=== PATIENT | male | born 1945 ===

== ENCOUNTER 2021-06-30 13:36 | Emergency (ER) | payer MEDICARE, MEDICAID ==
[2021-06-30] MEDS ORDERED: Sodium Chloride 0.9% 10 ML Syringe FLUSH PRN (13:57)
--- NOTE | 2021-06-30 14:16 | CR ---
PROCEDURE INFORMATION: Exam: XR Chest Exam date and time: 06/30/2021 2:05 PM Age: 76 years old Clinical indication: Other: Bradycardia TECHNIQUE: Imaging protocol: XR of the chest. Views: 1 view. COMPARISON: No relevant prior studies available. FINDINGS: Lungs: Unremarkable. No consolidation. Pleural spaces: Unremarkable. No pleural effusion. No pneumothorax. Heart/Mediastinum: Unremarkable. No cardiomegaly. Bones/joints: Unremarkable. IMPRESSION: No acute findings.
[2021-06-30 14:26] LABS: ANION GAP 14.6 mEq/L (7-13); CHLORIDE,CL 105 mmol/L (98-107); SODIUM,NA 144 mmol/L (136-145)
--- NOTE | 2021-06-30 15:44 | EDM.PDOC ---
Scribed by Rosalinda Villagran 06/30/21 [id number] for Lynda Norton MD ED HPI GENERAL MEDICAL PROBLEM - General Chief Complaint: Cardiovascular Problem Stated Complaint: sent from dialysis Time Seen by Provider: 06/30/21 13:54 Source of Information: Reports: Patient, Old Records, RN, RN Notes Reviewed History Limitations: Reports: No Limitations - History of Present Illness INITIAL COMMENTS - FREE TEXT/NARRATIVE: 76 y/o M was at dialysis here at [facility]. While starting dialysis staff noted pts pulse to be in the 30's. Pt has no physical complaints. Staff brought pt to ER for evaluation. Normally gets dialysis once a week. 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 Pt now self caths to ensure bladder emptying. Is schedule for a Turp procedure in the near future. Denies heart disease, cp, db, abd pn, vision prob, dizziness, pelvic pn, extremity pain, weakness, fatigue, constipation. Duration: Minutes: Location: Reports: Chest Severity: Moderate Improves with: Reports: None Worsens with: Reports: None - Related Data Allergies Allergy/AdvReac Type Severity Reaction Status Date / Time Penicillins Allergy Cardiac Verified 06/30/21 14:20 Arrest Home Meds: Home Meds Amiodarone HCl 100 mg PO DAILY 06/30/21 [History] Bilberry 375 mg PO ASDIRECTED 06/30/21 [History] Calcium Acetate [PhosLo] 667 mg PO TID 06/30/21 [History] Cholecalciferol (Vitamin D3) [Vitamin D3] 1 tab PO ASDIRECTED 06/30/21 [History] Fish Oil/[place]-3 Fatty Acids [Fish Oil 1,000 MG] 1 tab PO ASDIRECTED 06/30/21 [History] Glucosamine Sulfate 1,000 mg PO ASDIRECTED 06/30/21 [History] Lutein 20 mg PO ASDIRECTED 06/30/21 [History] Midodrine 7.5 mg PO ASDIRECTED 06/30/21 [History] Multivitamin [Multi-Vitamin Daily] 1 tab PO ASDIRECTED 06/30/21 [History] Saw Zeigler 80 mg PO ASDIRECTED 06/30/21 [History] Tamsulosin [Flomax] 0.4 mg PO ACLUNCH 06/30/21 [History] Tamsulosin [Tamsulosin 24 Hr] 0.4 mg PO ASDIRECTED 06/30/21 [History] Vitamin E 1,000 unit PO 06/30/21 [History] Zinc Sulfate [Zincate] 220 mg PO DAILY 06/30/21 [History] ED ROS GENERAL - Review of Systems Review Of Systems: Comprehensive ROS is negative, except as noted in HPI. ED EXAM, GENERAL - Physical Exam Exam: See Below Exam Limited By: No Limitations General Appearance: Alert, No Apparent Distress Eye Exam: Bilateral Eye: PERRL Nose: Normal Inspection, Normal Mucosa, No Blood Throat/Mouth: Normal Inspection Head: Atraumatic, Normocephalic Neck: Normal Inspection, Supple, Non-Tender, Full Range of Motion Respiratory/Chest: No Respiratory Distress, Lungs Clear, Normal Breath Sounds, No Accessory Muscle Use Cardiovascular: Other (bradycardic rhythm by auscultation and peripheral pulse) GI/Abdominal: Soft, Non-Tender (Male) Exam: Deferred Rectal (Males) Exam: Deferred Back Exam: Normal Inspection, Full Range of Motion Extremities: Normal Inspection, Normal Range of Motion, Non-Tender, Normal Capillary Refill, No Pedal Edema Neurological: Alert, Oriented, Normal Cognition Psychiatric: Normal Affect Skin Exam: Warm, Dry, Intact #1 Interpretation EKG Date: 06/30/21 Time: 13:43 Rhythm: Other (siuns bigeminy) [place]: LAD-Left [place] Deviation P-Wave: Present QRS: Normal ST-T: Normal EKG Interpretation Comments: sinus rhythm with bigeminy rate of 85 on the EKG, PVCs are not conducting a pulse, underlying pulse rate is actually 36. Left axis, normal R wave progression, normal ST segment. Course - Vital Signs Last Recorded V/S: Last Vital Signs Temp 98 F 06/30/21 14:13 Pulse 68 06/30/21 14:13 Resp 14 06/30/21 14:13 BP 146/72 H 06/30/21 14:13 Pulse Ox 100 06/30/21 14:13 - Orders/Labs/Meds Orders: Active Orders 24 hr Category Date Time Status EKG 12 Lead [EKG Documentation Completion] [RC] STAT Care 06/30/21 13:31 Active Peripheral IV Care [RC] . DIRECTED Care 06/30/21 13:57 Active CULTURE URINE [RM] Stat Lab 06/30/21 15:09 Received UA W/MICROSCOPIC [URIN] Stat Lab 06/30/21 15:09 Results Sodium Chloride 0.9% [Saline Flush] Med 06/30/21 13:57 Active 10 ml FLUSH ASDIRECTED PRN Peripheral IV Insertion Adult [OM.PC] Stat Oth 06/30/21 13:56 Ordered Medication Orders Sodium Chloride (Sodium Chloride 0.9% 10 Ml Syringe) 10 ml FLUSH ASDIRECTED PRN PRN Reason: Keep Vein Open Labs: Laboratory Tests 06/30/21 06/30/21 06/30/21 Range/Units 13:50 13:50 15:09 WBC 7.1 (5.0-10.0) 10^3/uL RBC 4.54 L (4.6-6.2) 10^6/uL Hgb 13.7 L (14.0-18.0) g/dL Hct 41.6 (40.0-54.0) % MCV 91.6 (80-100) fL MCH 30.2 (27.0-34.0) pg MCHC 32.9 L (33.0-35.0) g/dL Plt Count 169 (150-450) 10^3/uL Neut % (Auto) 61.2 (42.2-75.2) % Lymph % (Auto) 27.7 (20.5-50.1) % [place] % (Auto) 9.8 H (2-8) % Eos % (Auto) 1.0 (1.0-3.0) % Baso % (Auto) 0.3 (0.0-1.0) % Sodium 144 (136-145) mmol/L Potassium 4.6 (3.5-5.1) mmol/L Chloride 105 (98-107) mmol/L Carbon Dioxide 29 (21-32) mmol/L Anion Gap 14.6 H (7-13) mEq/L BUN 58 H (7-18) mg/dL Creatinine 3.40 H (0.70-1.30) mg/dL Est Cr Clr Drug Dosing TNP Estimated GFR (MDRD) 18 BUN/Creatinine Ratio 17.1 (No establ ref range) Glucose 91 (70-99) mg/dL Calcium 9.3 (8.5-10.1) mg/dL Phosphorus 3.5 (2.6-4.7) mg/dL Magnesium 2.2 (1.8-2.4) mg/dL Total Bilirubin 0.5 (0.2-1.0) mg/dL AST 16 (15-37) U/L ALT 22 (16-63) U/L Alkaline Phosphatase 45 L (46-116) U/L Troponin I High Sens 12 (<=76) pg/mL B-Natriuretic Peptide 265 H (0-100) pg/ml Total Protein 7.0 (6.4-8.2) g/dL Albumin 3.7 (3.4-5.0) g/dL Globulin 3.3 Albumin/Globulin Ratio 1.1 TSH, Ultra Sensitive 1.39 (0.36-3.74) uIU/mL Urine Color Yellow (YELLOW) Urine Appearance Cloudy (CLEAR) Urine pH 6.5 (5.0-9.0) Ur Specific [place] 1.020 (1.005-1.030) Urine Protein 30 H (NEGATIVE) Urine Glucose (UA) Negative (NEGATIVE) Urine Ketones Negative (NEGATIVE) Urine Occult Blood Trace-lysed H (NEGATIVE) Urine Nitrite Positive H (NEGATIVE) Urine Bilirubin Negative (NEGATIVE) Urine Urobilinogen 0.2 (0.2-1.0) mg/dL Ur Leukocyte Esterase Large H (NEGATIVE) Meds: Medications Generic Name Dose Route Start Last Admin Trade Name Freq PRN Reason Stop Dose Admin Sodium Chloride 10 ml 06/30/21 13:57 Sodium Chloride 0.9% 10 Ml Syringe FLUSH ASDIRECTED PRN Keep Vein Open - Radiology Interpretation Free Text/Narrative:: [facility] Final Radiology Report Call: [phone] assistance Online chat: [email or web address] Name: JOYCELYN GOODMAN Age: 76Years M Date: 06/30/2021 SSN: -- : [id number] Study: CR CHEST 1V FRONTAL Requesting Physician: LYNDA NORTON Images: 1 Addl Studies: Provided Clinical History: bradycardia Contrast: Contrast Medium: Contrast Amount: Contrast Method: CONFIDENTIALITY STATEMENT This report is intended only for use by the referring physician, and only in accordance with law. If you received this in error, call [phone]. Page 1 of 1 PROCEDURE INFORMATION: Exam: XR Chest Exam date and time: 06/30/2021 2:05 PM Age: 76 years old Clinical indication: Other: Bradycardia TECHNIQUE: Imaging protocol: XR of the chest. Views: 1 view. COMPARISON: No relevant prior studies available. FINDINGS: Lungs: Unremarkable. No consolidation. Pleural spaces: Unremarkable. No pleural effusion. No pneumothorax. Heart/Mediastinum: Unremarkable. No cardiomegaly. Bones/joints: Unremarkable. IMPRESSION: No acute findings. Thank you for allowing us to participate in the care of your patient. Dictated and Authenticated by: Ernesto Alfonso MD 06/30/2021 2:16 PM Central Time ([place] & [place]) - Re-Assessments/Exams Free Text/Narrative Re-Assessment/Exam: 06/30/21 15:36 Pt's heart rate initially bradycardic at 36 with bigeminal PVCs, since shortly after arrival he has remained with heart rate between 56 and 68 with PVCs throughout the remainder of the ER stay. Pt has been completely asymptomatic. 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 Departure - Departure Time of Disposition: 15:37 Disposition: Home, Self-Care 01 Condition: Good Clinical Impression: PVCs (premature ventricular contractions), Bradycardia UTI (urinary tract infection) Qualifiers: Urinary tract infection type: site unspecified Hematuria presence: without yassine turia Qualified Code(s): N39.0 - Urinary tract infection, site not specified Instructions: Urinary Tract Infection, Adult, Bradycardia, Adult, Premature Ventricular Contraction Forms: ED Department Discharge Additional Instructions: Rx: Cipro 250mg Follow up next week with your tan room supervisor or live games dealer for bradycardia with PVCs. Return to the ER or call 911 if you feel lightheaded, faint, have chest pain, or any other emergent concerns. Sepsis Event Note (ED) - Focused Exam Vital Signs: Vital Signs Temp Pulse Resp BP Pulse Ox 06/30/21 14:13 98 F 68 14 146/72 H 100 - My Orders Last 24 Hours: My Active Orders 06/30/21 13:31 EKG 12 Lead [EKG Documentation Completion] [RC] STAT 06/30/21 13:56 Peripheral IV Insertion Adult [OM.PC] Stat 06/30/21 13:57 Peripheral IV Care [RC] . DIRECTED Sodium Chloride 0.9% [Saline Flush] 10 ml FLUSH ASDIRECTED PRN 06/30/21 15:09 CULTURE URINE [RM] Stat UA W/MICROSCOPIC [URIN] Stat - Assessment/Plan Last 24 Hours: My Active Orders 06/30/21 13:31 EKG 12 Lead [EKG Documentation Completion] [RC] STAT 06/30/21 13:56 Peripheral IV Insertion Adult [OM.PC] Stat 06/30/21 13:57 Peripheral IV Care [RC] . DIRECTED Sodium Chloride 0.9% [Saline Flush] 10 ml FLUSH ASDIRECTED PRN 06/30/21 15:09 CULTURE URINE [RM] Stat UA W/MICROSCOPIC [URIN] Stat I have read and agree with the documentation that has been completed regarding this visit. By signing this record, I attest that the documentation was completed in my physical presence and is an accurate record of the encounter.
== END 2021-06-30 15:58 | disposition home or self-care (01) ==
LOC: DL.ED 13:36
DX: N39.0 Urinary tract infection, site not specified (principal); I49.3 Ventricular premature depolarization; Z88.0 Allergy status to penicillin; Z79.899 Other long term (current) drug therapy
CPT/HCPCS: 36415; 71045; 80053; 81001; 83735; 83880; 84100; 84443; 84484; 85025; 87086; 87088; 87186; 93005; 93010; 99284; 99284-25